=== PATIENT | female | born 1950 | race Caucasian/White ===

== ENCOUNTER 2016-11-09 19:31 | Emergency (ER) | payer MEDICARE, OTHER ==
[2016-11-09 19:29] LABS: BASOPHILS 0.2 %; BASOPHILS ABSOLUTE 0.01 10/3/uL (0.0-0.16); EOSINOPHILS 1.7 %; EOSINOPHILS ABSOLUTE 0.07 10/3/uL (0.0-0.53); HEMOGLOBIN 13.2 g/dL (12.0-16.0); LYMPHOCYTES 5.4 %; LYMPHOCYTES ABSOLUTE 0.22 10/3/uL (0.67-4.30); MEAN CORPUSCULAR HEMOGLOB 29.7 pg (26.0-34.0); MEAN CORPUSCULAR VOLUME 90.1 fL (80-100); MEAN PLATELET VOLUME 9.6 fL (9.2-13.0); MONOCYTES 4.9 %; NEUTROPHILS 87.8 %; NEUTROPHILS ABSOLUTE 3.59 10/3/uL (2.02-8.40); PLATELET COUNT 227 10/3/uL (150-400); RBC DISTRIBUTION WIDTH 13.6 % (12.0-16.0); RED CELL COUNT 4.44 10/6/uL (4.0-5.6)
[2016-11-09 19:30] LABS: MANUAL DIFF NO %; WHITE BLOOD CELLS 4.1 10/3/uL (4.5-10.5)
[~2016-11-09 19:31] MED LIST: BUSPAR5; COZ50 PO; ESTRODIOL; LIOR10; MIRALAXPKT PO; MSCONT60 PO; NORCO1 TAB PO; RELA5 PO; SYN112 PO; TRANXENE T7.5 MG OR; V2 PO; ZOFRAN8 PO; [UNRECOGNIZED DRUG - OTHER]
[2016-11-09 19:43] LABS: A/G RATIO 1.3 (0.7-1.9); ALBUMIN 3.5 G/DL (3.5-5.0); ALKALINE PHOSPHATASE 74 U/L (45-117); BUN (BLOOD UREA NITROGEN) 38 MG/DL (6-23); CALCIUM, SERUM 8.1 MG/DL (8.5-10.4); CHLORIDE, SERUM 108 MMOL/L (96-112); CO2 (CARBON DIOXIDE) 31 MMOL/L (24-34); CREATININE 1.23 MG/DL (0.55-1.02); GFR AFRICAN AMERICAN 52 ML/MIN (>=60); GFR NON AFRICAN AMERICAN 45 ML/MIN (>=60); GLOBULIN 2.8 G/DL (2.5-4.1); GLUCOSE, SERUM 122 MG/DL (60-99); POTASSIUM, SERUM 4.5 MMOL/L (3.5-5.3); SGOT(AST) 17 U/L (5-40); SGPT(ALT) 21 U/L (5-65); SODIUM, SERUM 142 MMOL/L (135-148); TOTAL BILIRUBIN 0.5 MG/DL (0-1.2); TOTAL PROTEIN 6.3 G/DL (6.0-8.5)
[2016-11-09 19:46] LABS: ASCORBIC ACID (UR NOT ORDER) NEG (NEG); BILIRUBIN, URINE NEGATIVE (NEG); ER URINALYSIS TAT 0 Hrs 18 Mins; KETONE, URINE TRACE MG/DL (NEG); LEUKOCYTE ESTERASE(NOT OR NEG (NEG); NITRITE (URINE) NEG (NEG); WBC (NOT ORDERED) (RFLEX) < 1 (0-5)
[2016-11-09] MEDS ORDERED: COZAAR100 MG PO (19:53)
[2016-11-09] MEDS ORDERED: LEXAPRO20 PO (19:53)
[2016-11-09] MEDS ORDERED: WELLSR150 PO (19:53)
[2016-11-09] MEDS ORDERED: LEVOTHYROXIN137 MCG PO (19:54)
[2016-11-09] MEDS ORDERED: PROTONIX PO (19:54)
[2016-11-09] MEDS ORDERED: PRILOSEC40 MG PO (19:54)
[2016-11-09] MEDS ORDERED: NEUR400 PO (19:55)
[2016-11-09] MEDS ORDERED: NORCO1 TA2 PO (19:55)
[2016-11-09] MEDS ORDERED: OTC SLEEP MED PO (19:56)
[2016-11-09] MEDS ORDERED: ESTRACE PO (19:56)
== END 2016-11-09 22:05 | disposition home or self-care (01) ==
LOC: ER 19:31
PROVIDERS: Hospitalist
DX: R11.10 Vomiting, unspecified (principal); I10 Essential (primary) hypertension; F41.0 Panic disorder [episodic paroxysmal anxiety]; Z90.710 Acquired absence of both cervix and uterus; Z88.5 Allergy status to narcotic agent; Z88.2 Allergy status to sulfonamides; Z79.899 Other long term (current) drug therapy
CPT/HCPCS: 74176; 80053; 81001; 83605; 83690; 85025; 96374; 99284; J1200; J2765